=== PATIENT | female | born 1985 | race Caucasian/White ===

== ENCOUNTER 2020-08-25 07:51 | Outpatient (RCR) | payer OTHER, SELFPAY | END 2020-09-22 23:59 | disposition home or self-care (01) | LOC: SOT 07:51 | PROVIDERS: Referring Provider Family Medicine; Visit Provider Family Medicine | DX: M25.532 Pain in left wrist (principal) | CPT/HCPCS: 97035; 97110; 97140; 97165; L3809 ==

== ENCOUNTER 2020-09-23 06:00 | Outpatient (RCR) | payer OTHER, SELFPAY | END 2020-10-06 23:00 | disposition home or self-care (01) | LOC: SOT 06:00 | PROVIDERS: Referring Provider Family Medicine; Visit Provider Family Medicine | DX: M25.532 Pain in left wrist (principal) | CPT/HCPCS: 97110; 97112; 97530 ==

== ENCOUNTER 2020-10-12 06:00 | Outpatient (CLI) | payer OTHER, SELFPAY | END 2020-10-12 23:59 | disposition home or self-care (01) | LOC: SOT 11-25 09:25 | PROVIDERS: Referring Provider Physical Medicine & Rehabilitation; Visit Provider Physical Medicine & Rehabilitation | DX: M65.042 Abscess of tendon sheath, left hand (principal) | CPT/HCPCS: 97165 ==